=== PATIENT | female | born 1995 | race Asian ===

== ENCOUNTER 2021-03-07 10:46 | Emergency (ER) | payer SELFPAY ==
[~2021-03-07] VITALS: Ht 167.6 cm; Wt 59.5 kg
[2021-03-07] MEDS ORDERED: LIDOCAINE 1% 10 ML VIAL SQ ONE (14:30)
[2021-03-07] MEDS ORDERED: VANCOMYCIN HCL 1 GM/D5% WATER 200 ML IV ONE (14:30)
[2021-03-07] MEDS ORDERED: BACITRACIN 0.9 GM PACKET OINTMENT TP ONE (14:30)
[2021-03-07 14:54] LABS: BASOPHILS % (AUTO) 0.6 % (0.0-2.0); EOSINOPHILS % (AUTO) 2.8 % (1.0-6.0); HEMATOCRIT 35.5 % (36-46); HEMOGLOBIN 11.6 g/dL (12.0-16.0); LYMPHOCYTES # (AUTO) 2.6 K/uL (1.0-4.8); LYMPHOCYTES % (AUTO) 28.5 % (22.0-44.0); MEAN CORPUSCULAR HEMOGLOBIN 28.9 pg (26.0-34.0); MEAN CORPUSCULAR HGB CONC 32.6 G/dL (31.0-37.0); MEAN CORPUSCULAR VOLUME 89 fL (80-100); MONOCYTES # (AUTO) 0.6 K/uL (0.1-1.0); MONOCYTES % (AUTO) 6.2 % (2.0-9.0); NEUTROPHILS # (AUTO) 5.6 K/uL (1.8-7.7); NEUTROPHILS % (AUTO) 61.9 % (40.0-70.0); PLATELET COUNT (AUTO) 295 K/uL (150-450); RED CELL DISTRIBUTION WIDTH 13.6 % (11.5-14.5)
[2021-03-07 15:12] LABS: LACTIC ACID 0.6 mmol/L (0.4-2.0)
[2021-03-07 15:18] LABS: ANION GAP 11 mmol/L (8-16); CARBON DIOXIDE 24 mmol/L (22-29); CHLORIDE 104 mmol/L (98-107); CREATININE 0.48 mg/dL (0.60-1.30); GLOMERULAR FILTR. RATE CALC > 60 mL/min (>60); GLUCOSE,RANDOM 92 mg/dL (70-110); SODIUM SERUM 139 mmol/L (136-145); UREA NITROGEN, BLOOD 10 mg/dL (7-18)
[2021-03-07 15:30] LABS: HCG,QUANTITATIVE < 1 mIU/mL (0-6)
[2021-03-07 15:51] VITALS: BP 112/64
== END 2021-03-07 17:13 | disposition home or self-care (01) ==
LOC: EMS 10:46
DX: L02.511 Cutaneous abscess of right hand (principal); L03.011 Cellulitis of right finger
CPT/HCPCS: 10061; 36415; 80048; 83605; 84702; 85025; 87040; 96365; 96366; 99284; J3370; J3490

== ENCOUNTER 2021-03-09 13:50 | Emergency (ER) | payer SELFPAY ==
[~2021-03-09] VITALS: Ht 167.6 cm; Wt 59.5 kg
[2021-03-09 13:58] VITALS: BP 121/81
== END 2021-03-09 15:52 | disposition home or self-care (01) ==
LOC: EMS 14:13
DX: L03.011 Cellulitis of right finger (principal); Z48.00 Encounter for change or removal of nonsurgical wound dressing
CPT/HCPCS: 99282; Z7502